=== PATIENT | male | born 1995 | race American Indian/Alaskan Native ===

== ENCOUNTER 2017-08-01 07:11 | Emergency (ER) | payer OTHER ==
[2017-08-01] MEDS ORDERED: CALCIUM CHLORIDE IV ONE (07:13)
[2017-08-01] MEDS ORDERED: AMIDATE IV ONE (07:13)
[2017-08-01] MEDS ORDERED: SODIUM BICARBONATE IV ONE (07:13)
[2017-08-01] MEDS ORDERED: ADRENALIN ONE (07:13)
[2017-08-01] MEDS ORDERED: ZEMURON IV ONE (07:13)
--- NOTE | 2017-08-01 07:21 | Emergency Department Report ---
ED CPR HPI - General Chief Complaint: Cardiac Arrest/CPR Stated Complaint: CARDIAC ARREST Time Seen by Provider: 08/01/17 07:20 Source: EMS (verbal report received from EMS.ems notes not available at time of chart dictation) Mode of arrival: Stretcher Limitations: Altered Mental Status, Other (patient nonverbal obtunded and upon arrival) - History of Present Illness Initial Comments: This is a 22-year-old male who was previously unknown to this provider, the patient is brought to the hospital by EMS as an out of hospital cardiac arrest. As per verbal report from EMS, last seen well and normal at 2:00 in the morning. Upon arrival to the ER, patient's jaw was clenched and rigid. His pupils were fixed and dilated. Right lower extremity intraosseous IV was placed by EMS. EMS reported initial rhythm was asystole. Upon arrival to the ER, patient received high quality CPR and standard ACLS medications. EMS provided the same. Unfortunately, pulses cannot be obtained, pupils remained fixed and dilated, and rhythm remained unchanged. Resuscitation efforts were terminated. Family was informed. MD Complaint: found unresponsive -: hour(s) Initial Findings in the Field: no pulse ROSC in the Field: No Associated Injuries: No Treatments Prior to Arrival: BMV, chest compressions, epinephrine mgs # ED Review of Systems ROS: Stated complaint: CARDIAC ARREST Other details as noted in HPI Comment: Unobtainable due to pts medical conditions ED Physical Exam - General Limitations: Other (patient nonverbal) General appearance: other (nonverbal) - Eye Eye exam: Present: other (pupils are fixed and dilated) - ENT ENT exam: Present: other (jaw is clenched) - Neck Neck exam: Present: normal inspection - Respiratory Respiratory exam: Present: other (patient not breathing spontaneously, no breath sounds are appreciated) - Cardiovascular Cardiovascular Exam: Present: other (patient is pulseless) - GI/Abdominal GI/Abdominal exam: Present: soft - Rectal Rectal exam: Present: deferred - Extremities Exam Extremities exam: Present: normal inspection, other (intraosseous IV noted in the right lower extremity) - Back Exam Back exam: Present: normal inspection - Neurological Exam Neurological exam: Present: other (patient nonverbal, GCS of 3) - Psychiatric Psychiatric exam: Present: other (patient is nonverbal) - Skin Skin exam: Present: dry ED Medical Decision Making - Medical Decision Making Differential diagnosis, including but not limited to: Intracranial hemorrhage, pulmonary embolus, sepsis Critical care attestation.: If time is entered above; I have spent that time in minutes in the direct care of this critically ill patient, excluding procedure time. ED Disposition Clinical Impression: Cardiac arrest Disposition: DC-20 Is pt being admited?: No Does the pt Need Aspirin: No Condition: Undetermined Referrals: PRIMARY CARE, [Primary Care Provider] - 3-5 Days
== END 2017-08-01 13:00 ==
LOC: ED 07:11
DX: I46.9 Cardiac arrest, cause unspecified (principal)
CPT/HCPCS: 82962; 99285; J0171